=== PATIENT | male | born 1960 | race Caucasian/White ===

== ENCOUNTER 2020-09-19 08:57 | Outpatient (RCR) | payer MEDICARE, SELFPAY ==
[2020-09-19] MEDS: COVID-19 VACC, MRNA(PFIZER)/PF 30 MCG/0.3 ML SYRINGE IM (07:10)
[2020-10-10] MEDS: COVID-19 VACC, MRNA(PFIZER)/PF 30 MCG/0.3 ML SYRINGE IM (07:09)
== END 2020-09-19 23:59 ==
LOC: IMMUN 08:57
PROVIDERS: Visit Provider Family Medicine
DX: Z23 Encounter for immunization (principal)
CPT/HCPCS: 0001A; 0002A; 91300